=== PATIENT | male | born 1995 | race Hispanic/Latino ===

== ENCOUNTER 2017-11-30 07:46 | Emergency (ER) | payer SELFPAY ==
--- NOTE | 2017-11-30 08:11 | ER ---
Nurse's Notes [facility] Name: Daquan Byrd Age: 22 yrs Sex: Male : 1995 Arrival Date: 11/30/2017 Time: 07:48 Bed 18 Private MD: None, None Diagnosis: Low back pain Presentation: 11/30 08:03 Presenting complaint: Patient states: started having pain to entire back last night, pt iw states he walked 8 miles picking up trash yesterday. Transition of care: patient was not received from another setting of care. Onset of symptoms was November 29, 2017. Risk Assessment: Do you want to hurt yourself or someone else? Patient reports no desire to harm self or others. Initial Sepsis Screen: Does the patient meet any 2 criteria? No. Patient's initial sepsis screen is negative. Does the patient have a suspected source of infection? No. Patient's initial sepsis screen is negative. Care prior to arrival: None. 08:03 Method Of Arrival: Ambulatory iw 08:03 Acuity: BAILEY 4 iw Historical: - Allergies: 08:05 NKA; iw - Home Meds: 08:05 None [Active]; iw - PMHx: 08:05 None; iw - PSHx: 08:05 None; iw - Immunization history:: Adult Immunizations not up to date. - Social history:: Smoking status: . - Ebola Screening: : Patient negative for fever greater than or equal to 101.5 degrees Fahrenheit, and additional compatible Ebola Virus Disease symptoms Patient denies exposure to infectious person Patient denies travel to an Ebola-affected area in the 21 days before illness onset No symptoms or risks identified at this time. Screenin:47 Abuse screen: Denies threats or abuse. Denies injuries from another. Nutritional iw screening: No deficits noted. Tuberculosis screening: No symptoms or risk factors identified. Fall Risk None identified. Assessment: 08:30 General: Appears in no apparent distress. Behavior is calm, cooperative. Pain: iw Complains of pain in back. Neuro: Level of Consciousness is awake, alert, obeys commands, Oriented to person, place, time, situation, Moves all extremities. Full function. Cardiovascular: Patient's skin is warm and dry. Respiratory: Respiratory effort is even, unlabored, Respiratory pattern is regular, symmetrical. GI: No signs and/or symptoms were reported involving the gastrointestinal system. Derm: Skin is pink, warm \T\ dry. normal. Musculoskeletal: Range of motion: intact in all extremities, Reports pain in back. Vital Signs: 08:04 BP 140 / 89; Pulse 83; Resp 16; Temp 97.6; Pulse Ox 98% on R/A; Weight 127.01 kg; iw Height 6 ft. (182.88 cm); Pain 7/10; 08:04 Body Mass Index 37.97 (127.01 kg, 182.88 cm) iw ED Course: 07:48 Patient arrived in ED. mr 07:49 None, None is Private Physician. mr 07:56 Katey Carlin F[facility]-C [facility]. snw 07:56 Pa Vazquez MD is Attending Physician. snw 08:04 Triage completed. iw 08:04 Arm band placed on. iw 08:10 Hemanth Plaza LVN is Primary Nurse. em 08:10 Patient has correct armband on for positive identification. iw 08:46 Primary Nurse role handed off by Hemanth Plaza LVN iw 08:46 Connie Horta RN is Primary Nurse. iw 08:47 No provider procedures requiring assistance completed. Patient did not have IV access iw during this emergency room visit. Administered Medications: 08:27 Drug: TORadol 60 mg Route: IM; Site: right deltoid; iw 08:47 Follow up: Response: No adverse reaction; Pain is decreased iw Outcome: 08:10 Discharge ordered by . snw 08:47 Discharged to home ambulatory. iw 08:47 Condition: good 08:47 Discharge instructions given to patient, Instructed on discharge instructions, follow up and referral plans. medication usage, Demonstrated understanding of instructions, follow-up care, medications, Prescriptions given X 2. 08:47 Patient left the ED. iw Signatures: Katey Carlin FNP-C HAND II THERMAL CUTTER-Maliaw MaderaDelfina mr Hemanth Plaza LVN LVN em Connie Horta, KATE RN iw
--- NOTE | 2017-11-30 08:11 | EDPHYS ---
Physician Documentation [facility] Name: Daquan Byrd Age: 22 yrs Sex: Male : 1995 Arrival Date: 11/30/2017 Time: 07:48 Bed 18 Private MD: None, None ED Physician Pa Vazquez HPI: 11/30 09:23 This 22 yrs old Male presents to ER via Ambulatory with complaints of Back snw Pain. 09:23 The patient presents with pain that is acute. The patient presents with pain that is snw acute, with no known mechanism of injury. The symptoms are located in the thoracic area and lumbar area. Onset: The symptoms/episode began/occurred suddenly, yesterday. The pain does not radiate. Associated signs and symptoms: The patient has no apparent associated signs or symptoms. The problem was sustained from unknown cause. Modifying factors: the patient symptoms are aggravated by obesity. Severity of symptoms: At their worst the symptoms were moderate, severe. It is unknown whether or not the patient has had similar symptoms in the past. It is unknown whether or not the patient has recently seen a physician. Historical: - Allergies: 08:05 NKA; iw - Home Meds: 08:05 None [Active]; iw - PMHx: 08:05 None; iw - PSHx: 08:05 None; iw - Immunization history:: Adult Immunizations not up to date. - Social history:: Smoking status: . - Ebola Screening: : Patient negative for fever greater than or equal to 101.5 degrees Fahrenheit, and additional compatible Ebola Virus Disease symptoms Patient denies exposure to infectious person Patient denies travel to an Ebola-affected area in the 21 days before illness onset No symptoms or risks identified at this time. ROS: 09:23 Constitutional: Negative for fever, chills, and weight loss, Eyes: Negative for injury, snw pain, redness, and discharge, ENT: Negative for injury, pain, and discharge, Neck: Negative for injury, pain, and swelling, Cardiovascular: Negative for chest pain, palpitations, and edema, Respiratory: Negative for shortness of breath, cough, wheezing, and pleuritic chest pain, Abdomen/GI: Negative for abdominal pain, nausea, vomiting, diarrhea, and constipation, : Negative for injury, bleeding, discharge, and swelling, MS/Extremity: Negative for injury and deformity, Skin: Negative for injury, rash, and discoloration, Neuro: Negative for headache, weakness, numbness, tingling, and seizure. 09:23 Back: Positive for decreased range of motion, pain at rest, of the thoracic area and lumbar area. Exam: 09:21 Constitutional: This is a well developed, well nourished patient who is awake, alert, snw and in no acute distress. Head/Face: Normocephalic, atraumatic. Eyes: Pupils equal round and reactive to light, extra-ocular motions intact. Lids and lashes normal. Conjunctiva and sclera are non-icteric and not injected. Cornea within normal limits. Periorbital areas with no swelling, redness, or edema. ENT: Nares patent. No nasal discharge, no septal abnormalities noted. Tympanic membranes are normal and external auditory canals are clear. Oropharynx with no redness, swelling, or masses, exudates, or evidence of obstruction, uvula midline. Mucous membranes moist. Neck: Trachea midline, no thyromegaly or masses palpated, and no cervical lymphadenopathy. Supple, full range of motion without nuchal rigidity, or vertebral point tenderness. No Meningismus. Chest/axilla: Normal chest wall appearance and motion. Nontender with no deformity. No lesions are appreciated. Cardiovascular: Regular rate and rhythm with a normal S1 and S2. No gallops, murmurs, or rubs. Normal PMI, no JVD. No pulse deficits. Respiratory: Lungs have equal breath sounds bilaterally, clear to auscultation and percussion. No rales, rhonchi or wheezes noted. No increased work of breathing, no retractions or nasal flaring. Abdomen/GI: Soft, non-tender, with normal bowel sounds. No distension or tympany. No guarding or rebound. No evidence of tenderness throughout. Skin: Warm, dry with normal turgor. Normal color with no rashes, no lesions, and no evidence of cellulitis. MS/ Extremity: Pulses equal, no cyanosis. Neurovascular intact. Full, normal range of motion. Neuro: Awake and alert, GCS 15, oriented to person, place, time, and situation. Cranial nerves II-XII grossly intact. Motor strength 5/5 in all extremities. Sensory grossly intact. Cerebellar exam normal. Normal gait. 09:21 Constitutional: This is a well developed, obese patient who is awake, alert, and in no acute distress. no hx of trauma, + buffalo hump 09:21 Back: pain, that is moderate, of the thoracic area and lumbar area. 09:24 Neuro: Exam negative for acute changes. snw Vital Signs: 08:04 BP 140 / 89; Pulse 83; Resp 16; Temp 97.6; Pulse Ox 98% on R/A; Weight 127.01 kg; iw Height 6 ft. (182.88 cm); Pain 7/10; 08:04 Body Mass Index 37.97 (127.01 kg, 182.88 cm) iw MDM: 08:00 Patient medically screened. [facility] 09:21 Data reviewed: vital signs, nurses notes. Data interpreted: Pulse oximetry: on room air snw is 98 %. Interpretation: normal. Counseling: I had a detailed discussion with the patient and/or guardian regarding: the historical points, exam findings, and any diagnostic results supporting the discharge/admit diagnosis, the presence of at least one elevated blood pressure reading (>120/80) during this emergency department visit, the need for outpatient follow up, to return to the emergency department if symptoms worsen or persist or if there are any questions or concerns that arise at home. Special discussion: I have referred the patient to see his PCP for further evaluation of high blood pressure. Based on the history and exam findings, there is no indication for further emergent testing or inpatient evaluation. I discussed with the patient/guardian the need to see the primary care provider for further evaluation of the symptoms. Administered Medications: 08:27 Drug: TORadol 60 mg Route: IM; Site: right deltoid; iw 08:47 Follow up: Response: No adverse reaction; Pain is decreased iw Disposition: 11/30/17 08:10 Discharged to Home. Impression: Low back pain. - Condition is Stable. - Discharge Instructions: Back Pain, Adult, Fat and Cholesterol Restricted Diet, Hypertension, Musculoskeletal Pain, Back Exercises, [id number], Heat Therapy. - Prescriptions for Diclofenac Sodium 75 mg Oral Tablet Sustained Release - take 1 tablet by ORAL route 2 times per day; 30 tablet. orphenadrine citrate 100 mg Oral Tablet Sustained Release - take 1 tablet by ORAL route 2 times per day As needed; 20 tablet. - Medication Reconciliation Form, Thank You Letter, Antibiotic Education, Prescription Opioid Use, Work release form form. - Follow up: Private Physician; When: 2 - 3 days; Reason: Recheck today's complaints, Continuance of care, Re-evaluation by your physician. Follow up: Emergency Department; When: As needed; Reason: Worsening of condition. Addendum: 12/01/2017 15:15 Co-signature as Attending Physician, Pa Vazquez MD I agree with the assessment and c sung plan of care. Signatures: Pa Vazquez MD MD cha Therrien, Shelly, KARL-C DIGITAL PRODUCT SPECIALIST-Connie Powell, RN RN iw Corrections: (The following items were deleted from the chart) 11/30 08:47 08:10 11/30/2017 08:10 Discharged to Home. Impression: Low back pain. Condition is iw Stable. Forms are Medication Reconciliation Form, Thank You Letter, Antibiotic Education, Prescription Opioid Use. Follow up: Private Physician; When: 2 - 3 days; Reason: Recheck today's complaints, Continuance of care, Re-evaluation by your physician. Follow up: Emergency Department; When: As needed; Reason: Worsening of condition. snw
[2017-11-30] MEDS ORDERED: KETOROLAC 30 MG/ML INJ ONE (08:20)
[2017-11-30] MEDS ORDERED: ACETAMINOPHEN 325 MG/SUPP PR ONE (08:21)
== END 2017-11-30 08:47 | disposition home or self-care (01) ==
LOC: ER 07:46
DX: M54.5 Low back pain (principal)
CPT/HCPCS: 96372; 99283

== ENCOUNTER 2019-03-16 18:58 | Emergency (ER) | payer SELFPAY ==
--- NOTE | 2019-03-16 19:46 | ER ---
Nurse's Notes [facility] Name: Daquan Byrd Age: 23 yrs Sex: Male : 1995 Arrival Date: 03/16/2019 Time: 19:00 Bed 8 Private MD: Diagnosis: Partial tear of penile frenulum Presentation: 03/16 19:03 Presenting complaint: Patient states: Penile pain with "boil", noticed it about a week lp1 ago, but began to become painful yesterday. Transition of care: patient was not received from another setting of care. Onset of symptoms was March 16, 2019. Risk Assessment: Do you want to hurt yourself or someone else? Patient reports no desire to harm self or others. Initial Sepsis Screen: Does the patient meet any 2 criteria? No. Patient's initial sepsis screen is negative. Does the patient have a suspected source of infection? No. Patient's initial sepsis screen is negative. Care prior to arrival: None. 19:03 Method Of Arrival: Ambulatory lp1 19:03 Acuity: BAILEY 4 lp1 Historical: - Allergies: 19:04 NKA; lp1 - Home Meds: 19:04 None [Active]; lp1 - PMHx: 19:04 None; lp1 - PSHx: 19:04 None; lp1 - Immunization history:: Adult Immunizations up to date. - Social history:: Smoking status: Patient uses tobacco products, denies chronic smoking, but will smoke occasionally. - Ebola Screening: : No symptoms or risks identified at this time. - Family history:: not pertinent. - Hospitalizations: : No recent hospitalization is reported. Screenin:07 Abuse screen: Denies threats or abuse. Denies injuries from another. Nutritional lp1 screening: No deficits noted. Tuberculosis screening: No symptoms or risk factors identified. Fall Risk None identified. Assessment: 19:10 General: Appears in no apparent distress. comfortable, Behavior is calm, cooperative, jb4 appropriate for age. Pain: Complains of pain in penis Pain does not radiate. Pain currently is 0 out of 10 on a pain scale. at worst was 10 out of 10 on a pain scale. Neuro: Level of Consciousness is awake, alert, obeys commands, Oriented to person, place, time, situation. Cardiovascular: Patient's skin is warm and dry. Respiratory: Airway is patent Respiratory effort is even, unlabored, Respiratory pattern is regular, symmetrical. GI: No deficits noted. No signs and/or symptoms were reported involving the gastrointestinal system. : No deficits noted. No signs and/or symptoms were reported regarding the genitourinary system. EENT: No deficits noted. No signs and/or symptoms were reported regarding the EENT system. Derm: Skin is pink, warm \\T\\ dry. Wound noted head of penis. Musculoskeletal: Circulation, motion, and sensation intact. Range of motion: intact in all extremities. 19:54 Reassessment: Patient appears in no apparent distress at this time. Patient and/or jb4 family updated on plan of care and expected duration. Pain level reassessed. Patient is alert, oriented x 3, equal unlabored respirations, skin warm/dry/pink. PT verbalized understanding of d/c and follow up instructions, ambulated out of ED with steady gait. Vital Signs: 19:05 BP 159 / 101; Pulse 111; Resp 18; Temp 97.2; Pulse Ox 97% on R/A; Weight 127.01 kg; lp1 Height 5 ft. 11 in. (180.34 cm); Pain 7/10; 19:05 Body Mass Index 39.05 (127.01 kg, 180.34 cm) lp1 ED Course: 19:00 Patient arrived in ED. mr 19:04 Triage completed. lp1 19:04 Arm band placed on left wrist. lp1 19:06 Isaac Moreno MD is Attending Physician. rn 19:10 Patient has correct armband on for positive identification. Bed in low position. Call jb4 light in reach. Side rails up X 1. 19:23 Javier Cruz, KATE is Primary Nurse. jb4 19:45 Shalini Cavazos MD is Referral Physician. rn 19:54 No provider procedures requiring assistance completed. Patient did not have IV access jb4 during this emergency room visit. Administered Medications: No medications were administered Outcome: 19:45 Discharge ordered by . rn 19:54 Discharged to home ambulatory. jb4 19:54 Condition: stable 19:54 Discharge instructions given to patient, Instructed on discharge instructions, follow up and referral plans. Demonstrated understanding of instructions, follow-up care. 19:55 Patient left the ED. jb4 Signatures: Luma Madera mr Isaac Moreno MD MD rn Priyanka Damian, RN RN lp1 Javier Cruz, KATE RN jb4
--- NOTE | 2019-03-16 19:46 | EDPHYS ---
Physician Documentation [facility] Name: Daquan Byrd Age: 23 yrs Sex: Male : 1995 Arrival Date: 03/16/2019 Time: 19:00 Bed 8 Private MD: ED Physician Isaac Moreno HPI: 03/16 19:42 This 23 yrs old Male presents to ER via Ambulatory with complaints of Penile rn Problem. 19:42 The patient presents with tenderness. Onset: The symptoms/episode began/occurred 1 rn week(s) ago. Modifying factors: The symptoms are alleviated by nothing, the symptoms are aggravated by sexual intercourse. Severity of symptoms: At their worst the symptoms were mild, in the emergency department the symptoms are unchanged. The patient has not experienced similar symptoms in the past. Reports having sex about 1 week ago, heard a pop, noticed tear to penile frenulum, reports small bumps around tear but no bleeding.. Historical: - Allergies: 19:04 NKA; lp1 - Home Meds: 19:04 None [Active]; lp1 - PMHx: 19:04 None; lp1 - PSHx: 19:04 None; lp1 - Immunization history:: Adult Immunizations up to date. - Social history:: Smoking status: Patient uses tobacco products, denies chronic smoking, but will smoke occasionally. - Ebola Screening: : No symptoms or risks identified at this time. - Family history:: not pertinent. - Hospitalizations: : No recent hospitalization is reported. ROS: 19:42 Constitutional: Negative for fever, chills, and weight loss, : + penile frenulum rn injury Exam: 19:42 Constitutional: This is a well developed, well nourished patient who is awake, alert, rn and in no acute distress. Male : uncircumcised, + small superficial mid=proximal frenulum tear, no active bleeding, non-fluctuant, no signs of infection, no purulence. Vital Signs: 19:05 BP 159 / 101; Pulse 111; Resp 18; Temp 97.2; Pulse Ox 97% on R/A; Weight 127.01 kg; lp1 Height 5 ft. 11 in. (180.34 cm); Pain 7/10; 19:05 Body Mass Index 39.05 (127.01 kg, 180.34 cm) lp1 MDM: 19:06 Patient medically screened. rn 19:42 Differential diagnosis: penile/foreskin frenulum tear. Data reviewed: vital signs, rn nurses notes, and as a result, I will discharge patient. Counseling: I had a detailed discussion with the patient and/or guardian regarding: the historical points, exam findings, and any diagnostic results supporting the discharge/admit diagnosis, the need for outpatient follow up, to return to the emergency department if symptoms worsen or persist or if there are any questions or concerns that arise at home. Special discussion: I discussed with the patient/guardian in detail that at this point there is no indication for admission to the hospital. It is understood, however, that if the symptoms persist or worsen the patient needs to return immediately for re-evaluation. Based on the history and exam findings, there is no indication for further emergent testing or inpatient evaluation. I discussed with the patient/guardian the need to see the urologist for further evaluation of the symptoms. Administered Medications: No medications were administered Disposition: 03/16/19 19:45 Discharged to Home. Impression: Partial tear of penile frenulum. - Condition is Stable. - Discharge Instructions: Wound Care. - Medication Reconciliation Form, Thank You Letter, Antibiotic Education, Prescription Opioid Use form. - Follow up: Shalini Cavazos MD; When: As needed; Reason: Recheck today's complaints, Re-evaluation by your physician. - Problem is new. - Symptoms have improved. Signatures: Isaac Moreno MD MD rn Pena, Laura, RN RN lp1 Javier Cruz RN RN jb4 Corrections: (The following items were deleted from the chart) 19:55 19:45 03/16/2019 19:45 Discharged to Home. Impression: Partial tear of penile frenulum. jb4 Condition is Stable. Forms are Medication Reconciliation Form, Thank You Letter, Antibiotic Education, Prescription Opioid Use. Follow up: Shalini Cavazos; When: As needed; Reason: Recheck today's complaints, Re-evaluation by your physician. Problem is new. Symptoms have improved. rn
[2019-03-16 23:08] VITALS: BP 159/101; TEMP 97.2; O2SAT 97
== END 2019-03-16 19:55 | disposition home or self-care (01) ==
LOC: ER 18:58
DX: S31.21XA Laceration without foreign body of penis, initial encounter (principal); X58.XXXA Exposure to other specified factors, initial encounter; Y93.89 Activity, other specified; Y92.9 Unspecified place or not applicable; Z72.0 Tobacco use
CPT/HCPCS: 99281

== ENCOUNTER 2019-11-03 20:51 | Emergency (ER) | payer SELFPAY ==
[2019-11-03] MEDS ORDERED: ACETAMINOPHEN 500 MG TAB ONE (22:16)
--- NOTE | 2019-11-04 00:41 | ER ---
Nurse's Notes [facility] Name: Daquan Byrd Age: 24 yrs Sex: Male : 1995 Arrival Date: 11/03/2019 Time: 20:53 Bed 18 Private MD: Diagnosis: Viral Respiratory Infection Presentation: 11/02 21:02 Chief complaint: Patient states: Fever, cough, SOB, body aches for 3 days. + diarrhea. ll1 Coronavirus screen: Surgical mask placed on patient. Patient moved to private room, placed in contact and droplet isolation with eye protection until further assessment. Patient reports a cough. Patient reports shortness of breath or difficulty breathing. Patient reports a measured and/or subjective temperature greater than 100.4F. Patient denies travel on a cruise ship or to a country the [facility] currently lists as an affected area. Patient denies contact with known and/or suspected case of COVID-19. Ebola Screen: Patient denies travel to an Ebola-affected area in the 21 days before illness onset. Initial Sepsis Screen: Does the patient meet any 2 criteria? Temp <36.0*C (96.8*F)) or > 38.3*C (100.9*F). HR > 90 bpm. Yes Does the patient have a suspected source of infection? Yes: Productive cough/pneumonia. Risk Assessment: Do you want to hurt yourself or someone else? Patient reports no desire to harm self or others. Onset of symptoms was October 31, 2019. 21:02 Method Of Arrival: Ambulatory ll1 21:02 Acuity: BAILEY 3 ll1 Triage Assessment: 11/03 07:48 Respiratory: Onset: The symptoms/episode began/occurred. fu 07:48 Respiratory: fu Historical: - Allergies: 11/02 21:04 NKA; ll1 - PSHx: 21:04 None; ll1 - Immunization history:: Flu vaccine is up to date. - Social history:: Smoking status: Patient reports the use of cigarette tobacco products, smokes one pack cigarettes per day. Patient/guardian denies using alcohol, street drugs. Screenin/25 01:00 Abuse screen: Denies threats or abuse. Nutritional screening: No deficits noted. fu Tuberculosis screening: No symptoms or risk factors identified. Fall Risk None identified. Assessment: 11/02 23:40 General: Appears uncomfortable, Behavior is calm, cooperative, appropriate for age, fu Reports fever for 2-3 days. Pain: Complains of pain in headache. Cardiovascular: Denies chest pain, nausea, Rhythm is regular. Respiratory: Reports shortness of breath cough that is pain with cough Airway is patent Respiratory effort is even, Breath sounds are clear bilaterally. 11/03 01:15 Reassessment: Patient appears in no apparent distress at this time. Patient is alert, fu oriented x 3, equal unlabored respirations, skin warm/dry/pink. discharge instruction given and explained without complaints made. Patient states symptoms have improved. Vital Signs: 11/02 21:02 BP 160 / 88; Pulse 117; Resp 18; Temp 101.8; Pulse Ox 96% ; Pain 9/10; ll1 22:00 BP 155 / 89; Pulse 110; Resp 17; Pulse Ox 99% ; fu 23:00 BP 171 / 95; Pulse 102; Resp 20; Temp 100.5; Pulse Ox 98% ; fu 11/03 00:00 BP 163 / 85; Pulse 99; Resp 16; Pulse Ox 100% ; fu 01:00 BP 153 / 85; Pulse 95; Resp 17; Temp 99.6; Pulse Ox 98% ; fu ED Course: 11/02 20:53 Patient arrived in ED. cl3 21:03 Triage completed. ll1 21:04 Arm band placed on Patient placed in an exam room, on a stretcher. ll1 21:12 Chad Rivera PA is PHCP. jmm 21:12 Pa Vazquez MD is Attending Physician. m 21:16 Gasper Soto, RN is Primary Nurse. fu 21:44 COVID-19 Sent. fu 21:44 Flu Sent. fu 22:10 CXR XRAY In Process Unspecified. EDMS 22:52 CT Chest Wo Con In Process Unspecified. EDMS 11/03 01:00 Patient has correct armband on for positive identification. Bed in low position. Side fu rails up X 1. Pulse ox on. NIBP on. 01:00 No provider procedures requiring assistance completed. Patient did not have IV access fu during this emergency room visit. 11:50 Health Dept notified/ PUI# [id number]/ Kasia in lab notified. eb Administered Medications: 11/02 22:29 Drug: Tylenol 1000 mg Route: PO; fu 23:30 Follow up: Response: No adverse reaction; Temperature is decreased fu Outcome: 11/03 00:40 Discharge ordered by MD. doty 01:20 Discharged to home ambulatory. fu 01:20 Condition: good 01:20 Discharge instructions given to patient, Instructed on discharge instructions, Demonstrated understanding of instructions, Prescriptions given X 1. 01:26 Patient left the ED. fu Addendum: 11/05/2019 17:40 Addendum: Other Dr. Vazquez attempted to call pt, caller was not available. i w 11/06/2019 10:00 Addendum: Other Dr. Moreno attempted to call pt, phone number is disconnected. i w Signatures: Dispatcher [employer] EDMS Chad Rivera PA PA jmm Williams, Irene, RN RN Gasper Olsen RN RN Jackelyn Kraus Charde cl3 Monica Smallwood RN RN ll1
--- NOTE | 2019-11-04 00:41 | EDPHYS ---
Physician Documentation [facility] Name: Daquan Byrd Age: 24 yrs Sex: Male : 1995 Arrival Date: 11/03/2019 Time: 20:53 Bed 18 Private MD: ED Physician Pa Vazquez HPI: 11/02 21:12 This 24 yrs old Male presents to ER via Ambulatory with complaints of Fever, jmm Shortness Of Breath. 21:12 The patient or guardian reports cough, described as moderate. Onset: The jmm symptoms/episode began/occurred gradually, 2 day(s) ago. Modifying factors: The symptoms are alleviated by rest, the symptoms are aggravated by activity. Associated signs and symptoms: Pertinent positives: diarrhea, fever. Historical: - Allergies: 21:04 NKA; ll1 - PSHx: 21:04 None; ll1 - Immunization history:: Flu vaccine is up to date. - Social history:: Smoking status: Patient reports the use of cigarette tobacco products, smokes one pack cigarettes per day. Patient/guardian denies using alcohol, street drugs. ROS: 21:12 Constitutional: Positive for fever. jmm 21:12 Respiratory: Positive for cough. 21:12 Abdomen/GI: Positive for diarrhea. 21:12 All other systems are negative. Exam: 21:12 Constitutional: This is a well developed, well nourished patient who is awake, alert, jmm and in no acute distress. Head/Face: atraumatic. Eyes: EOMI, no conjunctival erythema appreciated ENT: Moist Mucus Membranes Neck: Trachea midline, Supple Chest/axilla: Normal chest wall appearance and motion. Cardiovascular: Regular rate and rhythm. No edema appreciated Respiratory: Normal respirations, no respiratory distress appreciated Abdomen/GI: Non distended, soft Back: Normal ROM Skin: General appearance color normal MS/ Extremity: Moves all extremities, no obvious deformities appreciated, no edema noted to the lower extremities Neuro: Awake and alert, normal gait Psych: Behavior is normal, Mood is normal, Patient is cooperative and pleasant Vital Signs: 21:02 BP 160 / 88; Pulse 117; Resp 18; Temp 101.8; Pulse Ox 96% ; Pain 9/10; ll1 22:00 BP 155 / 89; Pulse 110; Resp 17; Pulse Ox 99% ; fu 23:00 BP 171 / 95; Pulse 102; Resp 20; Temp 100.5; Pulse Ox 98% ; fu 11/03 00:00 BP 163 / 85; Pulse 99; Resp 16; Pulse Ox 100% ; fu 01:00 BP 153 / 85; Pulse 95; Resp 17; Temp 99.6; Pulse Ox 98% ; fu MDM: 11/02 21:14 Patient medically screened. [facility] 11/03 00:39 Data reviewed: vital signs, nurses notes. Counseling: I had a detailed discussion with [facility] the patient and/or guardian regarding: the historical points, exam findings, and any diagnostic results supporting the discharge/admit diagnosis, lab results, radiology results, the need for outpatient follow up, to return to the emergency department if symptoms worsen or persist or if there are any questions or concerns that arise at home. ED course: Patient is alert and non toxic in appearance in the ED. Patient advised to self quarantine due to concern for coronavirus. Patient is otherwise given strict return precautions. Patient understood and agrees with the plan of care. . 11/02 21:12 Order name: COVID-19; Complete Time: 09:00 [facility] 11/02 21:12 Order name: Flu; Complete Time: 23:27 [facility] 11/02 21:12 Order name: CXR XRAY; Complete Time: 09:00 [facility] 11/02 21:12 Order name: Strep; Complete Time: 23:27 [facility] 11/02 22:18 Order name: CT Chest Wo Con [facility] 11/02 23:14 Order name: Throat Culture [facility] 11/02 21:12 Order name: Droplet/Contact Precautions; Complete Time: 07:49 [facility] 11/02 21:12 Order name: Labs collected and sent; Complete Time: 07:49 [facility] 11/02 21:12 Order name: O2 Per Protocol; Complete Time: 07:49 [facility] Administered Medications: 11/02 22:29 Drug: Tylenol 1000 mg Route: PO; fu 23:30 Follow up: Response: No adverse reaction; Temperature is decreased fu Disposition: 11/03 17:50 Co-signature as Attending Physician, Pa Vazquez MD I agree with the assessment and bryce plan of care. Disposition: 11/04/19 00:40 Discharged to Home. Impression: Viral Respiratory Infection. - Condition is Stable. - Discharge Instructions: Viral Respiratory Infection. - Prescriptions for Albuterol Sulfate 90 mcg/actuation - inhale 1-2 puff by INHALATION route every 4-6 hours; 1 Inhaler. - Medication Reconciliation Form, Thank You Letter, Antibiotic Education, Prescription Opioid Use form. - Follow up: Private Physician; When: 2 - 3 days; Reason: Recheck today's complaints, Continuance of care, Re-evaluation by your physician. Signatures: Dispatcher [employer] EDPa Ya MD MD cha Mickail, Joel, PA PA jmm Nieto, Roman, MD MD rn Gasper Soto, RN RN Monica Sifuentes RN RN ll1 Corrections: (The following items were deleted from the chart) 01:26 00:40 11/04/2019 00:40 Discharged to Home. Impression: Viral Respiratory Infection. fu Condition is Stable. Forms are Medication Reconciliation Form, Thank You Letter, Antibiotic Education, Prescription Opioid Use. Follow up: Private Physician; When: 2 - 3 days; Reason: Recheck today's complaints, Continuance of care, Re-evaluation by your physician. lalitha
[2019-11-04 03:17] VITALS: BP 160/88; TEMP 101.8; O2SAT 96
--- NOTE | 2019-11-04 08:46 | RAD REPORT ---
EXAM DESCRIPTION: RAD - Chest Single View - 11/03/2019 10:10 pm CLINICAL HISTORY: cough, sob Chest pain. COMPARISON: Thorax Wo Con dated 11/03/2019 FINDINGS: Portable technique limits examination quality. Mild bilateral interstitial lung opacities are present suggesting interstitial pneumonia. The heart i s normal in size. No displaced fractures. IMPRESSION: Bilateral interstitial pneumonia pattern.
--- NOTE | 2019-11-05 03:01 | RAD REPORT ---
EXAM DESCRIPTION: CT Chest Without Intravenous Contrast CLINICAL HISTORY: The patient is 24 years old and is Male; shortness of breath TECHNIQUE: Axial computed tomography images of the chest without intravenous contrast. Sagittal and coronal reformatted images were created and reviewed. This CT exam was performed using one or more of the following dose reduction techniques: automated exposure control, adjustment of the mA and/o r kV according to patient size, and/or use of iterative reconstruction technique. DLP: 1242 mGy*cm COMPARISON: None. FINDINGS: LUNGS: Innumerable centrilobular subcentimeter groundglass nodularities bilaterally. Lar gest nodule noted in the left lower lobe measuring approximately 9 mm (series 201, image 42). PLEURAL SPACE: Unremarkable. No pneumothorax. No significant effusion. HEART: Unremarkable. No cardiomegaly. No significant pericardial effusion. THYROID: No thyroid tissue identified in the expected thyroid bed. BONES/JOINTS: Unremarkable. No acute fracture. No dislocation. SOFT TISSUES: Unremarkable. VASCULATURE: Unremarkable. No thoracic aortic aneurysm. LYMPH NODES: Unremarkable. No enlarged lymph nodes. LIVER: Diffuse hepatic steatosis. GALLBLADDER AND BILE DUCTS: Contracted gallbladder. IMPRESSION: 1. Imaging features can be seen with COVID-19 pneumonia, though are nonspecific and can occur with a variety of infectious and noninfectious processes. 2. Diffuse hepatic steatosis. Electronically signed by: Steven Balderrama DO 11/03/2019 11:03 PM CDT Due to temporary technical issues with the PACS/Fluency reporting system, reports are being signed by the in house radiologist without review as a courtesy to ensure prompt reporting. The interpreting r adiologist is fully responsible for the content of the report.
== END 2019-11-04 01:26 | disposition home or self-care (01) ==
LOC: ER 20:51
DX: J98.8 Other specified respiratory disorders (principal); F17.210 Nicotine dependence, cigarettes, uncomplicated
CPT/HCPCS: 71045; 71250; 87070; 87081; 87804; 99284; U0001; U0002

== ENCOUNTER 2020-03-31 20:45 | Emergency (ER) | payer SELFPAY ==
[2020-03-31 22:23] LABS: Urine Blood NEGATIVE (NEG); Urine Glucose NEGATIVE (NEG); Urine Protein NEGATIVE (NEG); Urine Specific Gravity 1.025 (1.005-1.030); Urine pH 6.5 (5.0-7.0)
[2020-03-31 22:46] LABS: Absolute Lymphocytes (CBC) 2.2 K/uL (0.7-4.9); Basophils % 0.8 % (0-1.3); Hematocrit 42.9 % (39.6-49.0); Lymphocytes % 19.6 % (15.3-44.8); MPV 8.3 fL (7.6-11.3); RBC Red Blood Cell Count 5.07 M/uL (4.33-5.43)
[2020-03-31 23:04] LABS: ALT/SGPT 179 U/L (12-78); AST/SGOT 87 U/L (15-37); Albumin 3.7 g/dL (3.4-5.0); Alkaline Phosphatase 96 U/L (45-117); BUN Blood Urea Nitrogen 11 mg/dL (7-18); Bicarbonate 30 mmol/L (21-32); Bilirubin Direct 0.1 mg/dL (0-0.2); Bilirubin Total 0.3 mg/dL (0.2-1.0); Glucose Level 117 mg/dL (74-106); Lipase 407 U/L (73-393); Potassium 4.3 mmol/L (3.5-5.1); Protein, Total 8.6 g/dL (6.4-8.2); Sodium Level 139 mmol/L (136-145)
--- NOTE | 2020-04-01 00:01 | ER ---
Nurse's Notes [facility] Name: Daquan Byrd Age: 25 yrs Sex: Male : 1995 Arrival Date: 03/31/2020 Time: 21:01 Bed 13 Private MD: Diagnosis: Acute pancreatitis Presentation: 03/31 21:02 Chief complaint: Patient states: LUQ abdominal pain for a few weeks. States he lifted ll1 weights, then the pain got more severe for the past three days. No N/V/D. No fever. Coronavirus screen: Client denies travel out of the [place] in the last 14 days. At this time, the client does not indicate any symptoms associated with coronavirus-19. Ebola Screen: Patient denies travel to an Ebola-affected area in the 21 days before illness onset. Initial Sepsis Screen: Does the patient meet any 2 criteria? HR > 90 bpm. No. Patient's initial sepsis screen is negative. Does the patient have a suspected source of infection? Yes: Acute abdominal pain. Risk Assessment: Do you want to hurt yourself or someone else? Patient reports no desire to harm self or others. Onset of symptoms was March 12, 2020. 21:02 Method Of Arrival: Ambulatory ll1 21:02 Acuity: BAILEY 3 ll1 Historical: - Allergies: 21:04 NKA; ll1 - PMHx: 21:04 None; ll1 - PSHx: 21:04 None; ll1 - Immunization history:: Flu vaccine is up to date. - Social history:: Smoking status: Patient/guardian denies using tobacco, Stopped _ months ago 3. Screenin:40 Abuse screen: Denies threats or abuse. Nutritional screening: No deficits noted. cr4 Tuberculosis screening: No symptoms or risk factors identified. Fall Risk None identified. Assessment: 21:54 General: Appears uncomfortable, obese, well groomed, Behavior is calm, cooperative, cr4 appropriate for age. Pain: Complains of pain in MENDEL abdomen. 21:54 Neuro: Level of Consciousness is awake, alert, obeys commands, Denies weakness cr4 difficulty swallowing, numbness. Cardiovascular: No deficits noted. Heart tones S1 S2. Respiratory: No deficits noted. Airway is patent Trachea midline Respiratory effort is even, unlabored, Respiratory pattern is regular, Breath sounds are clear bilaterally. GI: Abdomen is round Bowel sounds present X 4 quads. Abd is soft and non tender X 4 quads. Reports upper abdominal pain, Patient currently denies diarrhea, vomiting. : No deficits noted. Denies burning with urination, incontinence, urinary frequency, urgency. EENT: No deficits noted. Derm: No deficits noted. Musculoskeletal: No deficits noted. 22:40 Reassessment: No changes from previously documented assessment. Patient and/or family cr4 updated on plan of care and expected duration. Pain level reassessed. Patient is alert, oriented x 3, equal unlabored respirations, skin warm/dry/pink. 23:40 Reassessment: No changes from previously documented assessment. Patient and/or family cr4 updated on plan of care and expected duration. Pain level reassessed. Patient is alert, oriented x 3, equal unlabored respirations, skin warm/dry/pink. 04/01 00:40 Reassessment: Patient is alert, oriented x 3, equal unlabored respirations, skin cr4 warm/dry/pink. Patient states symptoms have improved. 04:01 Reassessment: Chad YAN in to see the patient.. cr4 Vital Signs: 03/31 21:02 BP 141 / 81; Pulse 97; Resp 18; Temp 97.9; Pulse Ox 99% ; Weight 136.08 kg; Height 5 ll1 ft. 11 in. (180.34 cm); Pain 8/10; 21:50 BP 119 / 83; Pulse 85; Resp 18; Pulse Ox 96% ; Pain 2/10; cr4 23:00 BP 112 / 76; Pulse 82; Resp 18; Temp 98.6; Pulse Ox 97% ; Pain 2/10; cr4 04/01 00:20 BP 125 / 83; Pulse 86; Resp 19; Pulse Ox 99% ; Pain 2/10; cr4 01:00 BP 122 / 73; Pulse 86; Resp 17; Temp 98.6; Pulse Ox 99% ; Pain 2/10; cr4 03/31 21:02 Body Mass Index 41.84 (136.08 kg, 180.34 cm) ll1 ED Course: 03/31 21:01 Patient arrived in ED. ll1 21:04 Triage completed. ll1 21:04 Arm band placed on. ll1 21:45 Chad Rivera PA is PHCP. [facility] 21:45 Adalberto Trejo MD is Attending Physician. [facility] 22:00 Missed attempt(s): 20 gauge in right antecubital area. cr4 22:33 Radiology exam delayed due to IV insertion attempt and/or patient not having nj appropriate IV at this time. 22:37 Inserted saline lock: 22 gauge in right antecubital area, using aseptic technique. dm5 Blood collected. 22:40 Patient has correct armband on for positive identification. Bed in low position. Side cr4 rails up X2. offered a blanket.. Diet: Patient is NPO. 23:59 Agustín Vincent is Hospitalizing Provider. [facility] 04/01 00:12 CT Chest For PE Angio In Process Unspecified. EDWI 00:12 CT Abd/Pelvis - IV Contrast Only In Process Unspecified. EDMS 00:49 Jose Miguel Perez MD is Referral Physician. [facility] 00:55 Preeti Edwards, KATE is Primary Nurse. cr4 01:00 IV discontinued, intact, bleeding controlled. cr4 01:09 No provider procedures requiring assistance completed. cr4 Administered Medications: 00:10 Drug: NS 0.9% 1000 ml Route: IV; Rate: 1 bolus; Site: left antecubital; cr4 03:50 Follow up: Response: No adverse reaction; IV Intake: 700ml cr4 Intake: 03:50 IV: 700ml; Total: 700ml. cr4 Outcome: 03/31 23:59 Decision to Hospitalize by Provider. [facility] 04/01 00:49 Discharge ordered by MD. [facility] 01:00 Discharged to home ambulatory, with friend. cr4 01:00 Condition: good 01:00 Discharge instructions given to patient, Instructed on discharge instructions, follow up and referral plans. medication usage, Clear liquid diet. Demonstrated understanding of instructions, follow-up care, medications. 01:00 Prescriptions given X 2. 01:09 Patient left the ED. cr4 Signatures: Dispatcher [employer] [facility] Trinidad Isidro, RN RN dm5 Chad Rivera PA PA [facility] Preeti Edwards, RN RN cr4 Jn Alva MyKena mw2 Monica Samllwood RN RN ll1 Corrections: (The following items were deleted from the chart) 03/31 22:37 22:36 Inserted saline lock: mw2 mw2
[2020-04-01] MEDS ORDERED: NA CHLORIDE 0.9% 1,000 ML ONE (00:16)
--- NOTE | 2020-04-01 00:50 | EDPHYS ---
Physician Documentation [facility] Name: Daquan Byrd Age: 25 yrs Sex: Male : 1995 Arrival Date: 03/31/2020 Time: 21:01 Bed 13 Private MD: ED Physician Adalberto Trejo HPI: 03/31 22:05 This 25 yrs old Male presents to ER via Ambulatory with complaints of jmm Abdominal Pain. 22:05 The patient presents with abdominal pain in the epigastric area. Onset: The jmm symptoms/episode began/occurred gradually, 1 month(s) ago. The symptoms do not radiate. Associated signs and symptoms: Pertinent positives: shortness of breath. The symptoms are described as achy. Modifying factors: The symptoms are alleviated by nothing, the symptoms are aggravated by nothing. This is a 25 year old male with no chronic medical conditions that presents to the ED with complaints of left flank pain, left sided abdominal pain, shortness of breath. Worsening after eating. . Historical: - Allergies: 21:04 NKA; ll1 - PMHx: 21:04 None; ll1 - PSHx: 21:04 None; ll1 - Immunization history:: Flu vaccine is up to date. - Social history:: Smoking status: Patient/guardian denies using tobacco, Stopped _ months ago 3. ROS: 22:05 Constitutional: Negative for fever, chills, and weight loss, Cardiovascular: Negative jmm for chest pain, palpitations, and edema. 22:05 Respiratory: Positive for shortness of breath. 22:05 Abdomen/GI: Positive for abdominal pain. 22:05 All other systems are negative. Exam: 22:05 Constitutional: This is a well developed, well nourished patient who is awake, alert, jmm and in no acute distress. Head/Face: atraumatic. Eyes: EOMI, no conjunctival erythema appreciated ENT: Moist Mucus Membranes Neck: Trachea midline, Supple Chest/axilla: Normal chest wall appearance and motion. Cardiovascular: Regular rate and rhythm. No edema appreciated Respiratory: Normal respirations, no respiratory distress appreciated Abdomen/GI: Non distended, soft Back: Normal ROM Skin: General appearance color normal MS/ Extremity: Moves all extremities, no obvious deformities appreciated, no edema noted to the lower extremities Neuro: Awake and alert, normal gait Psych: Behavior is normal, Mood is normal, Patient is cooperative and pleasant Vital Signs: 21:02 BP 141 / 81; Pulse 97; Resp 18; Temp 97.9; Pulse Ox 99% ; Weight 136.08 kg; Height 5 ll1 ft. 11 in. (180.34 cm); Pain 8/10; 21:50 BP 119 / 83; Pulse 85; Resp 18; Pulse Ox 96% ; Pain 2/10; cr4 23:00 BP 112 / 76; Pulse 82; Resp 18; Temp 98.6; Pulse Ox 97% ; Pain 2/10; cr4 04/01 00:20 BP 125 / 83; Pulse 86; Resp 19; Pulse Ox 99% ; Pain 2/10; cr4 01:00 BP 122 / 73; Pulse 86; Resp 17; Temp 98.6; Pulse Ox 99% ; Pain 2/10; cr4 03/31 21:02 Body Mass Index 41.84 (136.08 kg, 180.34 cm) ll1 MDM: 03/31 22:03 Patient medically screened. [facility] 23:58 Data reviewed: vital signs, nurses notes. Counseling: I had a detailed discussion with [facility] the patient and/or guardian regarding: the historical points, exam findings, and any diagnostic results supporting the discharge/admit diagnosis, lab results, the need for further work-up and treatment in the hospital. ED course: . 04/01 00:48 Counseling: I had a detailed discussion with the patient and/or guardian regarding: [facility] radiology results, the need for outpatient follow up. ED course: Patient is alert and non toxic in appearance in the ED. Patient is advised to follow up with gi and otherwise given strict return precautions. Patient understood and agrees with the plan of care. . 03/31 21:59 Order name: Basic Metabolic Panel; Complete Time: 23:19 [facility] 03/31 21:59 Order name: CBC with Diff; Complete Time: 23:00 [facility] 03/31 21:59 Order name: Hepatic Function; Complete Time: 23:19 [facility] 03/31 21:59 Order name: Lipase; Complete Time: 23:19 [facility] 03/31 22:04 Order name: CT Chest For PE Angio [facility] 03/31 22:20 Order name: Urine Dipstick--Ancillary (enter results); Complete Time: 22:34 [facility] 11/20 21:59 Order name: IV Saline Lock; Complete Time: 22:37 [facility] 03/31 21:59 Order name: Labs collected and sent; Complete Time: 22:37 [facility] 03/31 21:59 Order name: Urine Dipstick-Ancillary (obtain specimen); Complete Time: 23:00 [facility] 03/31 22:04 Order name: CT Abd/Pelvis - IV Contrast Only [facility] Administered Medications: 00:10 Drug: NS 0.9% 1000 ml Route: IV; Rate: 1 bolus; Site: left antecubital; cr4 03:50 Follow up: Response: No adverse reaction; IV Intake: 700ml cr4 Disposition: 06:32 Co-signature as Attending Physician, Adalberto Trejo MD. [email or web address] Disposition: 04/01/20 00:49 Discharged to Home. Impression: Acute pancreatitis. - Condition is Stable. - Discharge Instructions: Clear Liquid Diet, Adult, Acute Pancreatitis. - Prescriptions for Zofran ODT 4 mg Oral tablet,disintegrating - place 1 tablet by TRANSLINGUAL route every 4-6 hours; 20 tablet. Tylenol- Codeine #3 300-30 mg Oral Tablet - take 1 tablet by ORAL route every 6 hours As needed; 30 tablet. - Medication Reconciliation Form, Thank You Letter, Antibiotic Education, Prescription Opioid Use form. - Follow up: Jose Miguel Perez MD; When: 2 - 3 days; Reason: Recheck today's complaints, Continuance of care, Re-evaluation by your physician. Signatures: Dispatcher [employer] EDMS Chad Rivera PA PA [facility] Preeti Edwards RN RN cr4 Monica Smallwood RN RN ll1 Adalberto Trejo MD MD 7 Corrections: (The following items were deleted from the chart) 00:00 03/31 23:58 ED course: I discussed the patient with Gama Ding whom accepted the [facility] patient to Dr. Vincent's service. . [facility] 04/01 00:00 11 23:59 Hospitalization Ordered by Agustín Vincent for Inpatient Admission. [facility] Preliminary diagnosis is Chest pain, unspecified. Bed requested for Telemetry/MedSurg (Inpatient). Status is Inpatient Admission. Condition is Stable. Problem is new. Symptoms are unchanged. [facility] 04/01 01:09 00:49 04/01/2020 00:49 Discharged to Home. Impression: Acute pancreatitis. Condition is cr4 Stable. Forms are Medication Reconciliation Form, Thank You Letter, Antibiotic Education, Prescription Opioid Use. Follow up: Jose Miguel Perez; When: 2 - 3 days; Reason: Recheck today's complaints, Continuance of care, Re-evaluation by your physician. [email or web address]
[2020-04-01 11:15] VITALS: BP 141/81; TEMP 97.9; O2SAT 99
--- NOTE | 2020-04-03 10:51 | RAD REPORT ---
EXAM DESCRIPTION: CT - Abdomen Pelvis W Contrast - 04/01/2020 7:11 am CLINICAL HISTORY: The patient is 25 years old and is Male; left flank pain TECHNIQUE: Axial computed tomography images of the abdomen and pelvis with intravenous contrast. S agittal and coronal reformatted images were created and reviewed. This CT exam was performed using one or more of the following dose reduction techniques: automated exposure control, adjustment of t he mA and/or kV according to patient size, and/or use of iterative reconstruction technique. COMPARISON: No relevant prior studies available. FINDINGS: LUNG BASES: Unremarkable. No mass. No consolidation. ABDOMEN: LIVER: The liver is enlarged and diffusely fatty. GALLBLADDER AND BILE DUCTS: The gallbladder is contracted. PANCREAS: Suggestion of mild inflammatory stranding involving the tail the pancreas is present. The pancreas enhances uniformly. SPLEEN: Unremarkable. ADRENALS: Unremarkable. No mass. KIDNEYS AND URETERS: Unremarkable. The kidneys enhance symmetrically. No obstructing renal or ur eteral calculus is seen. No hydronephrosis or hydroureter. No perinephric fluid or stranding. STOMACH AND BOWEL: Stomach is distended with food contents. The small bowel is normal in caliber . Stool is present throughout colon. There is no mucosal thickening or evidence of bowel obstruction. PELVIS: APPENDIX: The appendix is normal in caliber without surrounding inflammation. BLADDER: Unremarkable. No mass. REPRODUCTIVE: Unremarkable as visualized. ABDOMEN and PELVIS: INTRAPERITONEAL SPACE: Unremarkable. No free air. No significant fluid collection. BONES/JOINTS: No acute fracture. SOFT TISSUES: The soft tissues are normal. VASCULATURE: Unremarkable. No abdominal aortic aneurysm. LYMPH NODES: Unremarkable. No enlarged lymph nodes. IMPRESSION: Findings suggest mild acute pancreatitis involving the tail the pancreas. Correlation wi laboratory values is recommended. Electronically signed by: Maryam Sanchez MD 04/01/2020 12:14 AM TRAILER PARK MANAGER Due to temporary technical issues with the PACS/Fluency reporting system, reports are being signed by the in house radiologist without review as a courtesy to ensure prompt reporting. The interpreting r adiologist is fully responsible for the content of the report.
--- NOTE | 2020-04-03 10:52 | RAD REPORT ---
EXAM DESCRIPTION: CT - Chest For Pe Angio - 04/01/2020 7:13 am CLINICAL HISTORY: 25 years Male left flank pain, shortness of breath COMPARISON: Prior CT scan of the chest dated November 03, 2019. TECHNIQUE: Images were obtained in axial, sagittal, and coronal planes. Intravenous contrast was adm inistered. Image degradation related to patient body size. 3-D MIP imaging performed. This exam was performed according to our departmental dose-optimization program which includes use of Automated Exposure Control, adjustment of the mA and/or kV according to patient size and/or use o f iterative reconstruction technique. FINDINGS: No filling defects pulmonary arteries bilaterally. No aortic dissection or dilatation. No pericardial or pleural effusions bilaterally. No adenopathy. Previously noted ill-defined lung parenchymal nodules have resolved. No new lung parenchymal infiltra jerica seen. No pneumothorax. No acute osseous abnormality. Decreased attenuation involving the liver consistent with fatty change. IMPRESSION: No evidence for pulmonary embolus. No aortic dissection or dilatation. Previously noted ill-defined nodular infiltrates have resolved. No new infiltrates seen. Fatty change involving the liver. Electronically signed by: Kristine Murillo MD 04/01/2020 12:17 AM TRIM INSTALLER Due to temporary technical issues with the PACS/Fluency reporting system, reports are being signed by the in house radiologist without review as a courtesy to ensure prompt reporting. The interpreting r adiologist is fully responsible for the content of the report.
== END 2020-04-01 01:09 | disposition home or self-care (01) ==
LOC: ER 20:45
DX: K85.90 Acute pancreatitis without necrosis or infection, unspecified (principal)
CPT/HCPCS: 36415; 71275; 74177; 80048; 80076; 81003; 83690; 85025; 99284; J7030; Q9967

== ENCOUNTER 2021-07-21 17:49 | Emergency (ER) | payer SELFPAY ==
[2021-07-21] MEDS ORDERED: dexAMETHasone 10 MG/ML VIAL ONE (18:56)
[2021-07-21] MEDS ORDERED: CLINDAMYCIN 900MG/D5W 900 MG/50 ML IVPB IV ONE (18:56)
[2021-07-21] MEDS ORDERED: KETOROLAC 30 MG/ML INJ ONE (18:56)
--- NOTE | 2021-07-21 19:17 | RAD REPORT ---
EXAM DESCRIPTION: CT - Soft Tissue Neck W/Contr CLINICAL HISTORY: pharynbgeal swelling Neck pain and swelling COMPARISON: No comparisons TECHNIQUE All CT scans are performed using dose optimization technique as appropriate and may includ e automated exposure control or mA/KV adjustment according to patient size. FINDINGS: Nasopharyngeal tissues are normal in appearance. Fossa Rosenmller are normal. [place] tonsils appear prominent in size without abscess. Parapharyngeal fat triangles are symmetric. Tongue base structures are normal. No prevertebral fluid collections. Epiglottis and aryepiglottic folds are normal. Piriform sinuses are well aerated. The vocal cords are normal in appearance. Salivary glands are normal in appearance. Enlarged lymph nodes are seen in bilaterally in the neck, largest on the right measuring 19 mm along the jugulodigastric chain and on the left measuring 23 mm. Upper lung lou are clear. Included intracranial contents are unremarkable. IMPRESSION: Enlarged lymph nodes neck bilaterally could indicate cervical adenitis. Followup imaging would be recommended to document resolution. Bilateral palatine tonsillar hypertrophy is present without abscess.
--- NOTE | 2021-07-21 19:26 | ER ---
Nurse's Notes [facility] Name: Daquan Byrd Age: 26 yrs Sex: Male : 1995 Arrival Date: 07/21/2021 Time: 17:53 Bed 6 Private MD: Diagnosis: Streptococcal pharyngitis Presentation: 07/21 17:59 Chief complaint: Patient states: Sore throat with swelling in tonsils for 4 days with ww left ear pain and a headache. Coronavirus screen: Vaccine status: Patient reports being unvaccinated. Client denies travel out of the [place] in the last 14 days. Ebola Screen: Patient denies travel to an Ebola-affected area in the 21 days before illness onset. Initial Sepsis Screen: Does the patient meet any 2 criteria? HR > 90 bpm. Does the patient have a suspected source of infection? Yes: No. Patient's initial sepsis screen is negative. Risk Assessment: Do you want to hurt yourself or someone else? Patient reports no desire to harm self or others. Onset of symptoms is unknown. 17:59 Method Of Arrival: Ambulatory ww 17:59 Acuity: BAILEY 4 ww Triage Assessment: 18:03 General: Appears uncomfortable, Behavior is calm, cooperative. Pain: Complains of pain ww in uvula, left aspect of posterior pharynx and right aspect of posterior pharynx. EENT: Throat has enlarged tonsils. Neuro: Level of Consciousness is awake, alert, obeys commands, Oriented to person, place, time, situation, Gait is steady, Speech is slurred. Cardiovascular: Capillary refill < 3 seconds Patient's skin is warm and dry. Respiratory: Airway is patent Respiratory effort is even, unlabored, Respiratory pattern is regular, symmetrical. GI: No signs and/or symptoms were reported involving the gastrointestinal system. : No signs and/or symptoms were reported regarding the genitourinary system. Derm: No signs and/or symptoms reported regarding the dermatologic system. Historical: - Allergies: 18:03 NKA; ww - PMHx: 18:03 None; ww - PSHx: 18:03 None; ww - Immunization history:: Adult Immunizations not immunized. - Social history:: Smoking status: Patient reports the use of cigarette tobacco products, smokes one-half pack cigarettes per day. Screenin:07 Abuse screen: Denies threats or abuse. Denies injuries from another. Nutritional ww screening: No deficits noted. Tuberculosis screening: No symptoms or risk factors identified. Fall Risk None identified. Assessment: 19:05 Reassessment: No changes from previously documented assessment. j9 19:05 Respiratory: Airway is patent Breath sounds are clear bilaterally. jg9 Vital Signs: 17:59 BP 135 / 79; Pulse 110; Resp 18; Temp 97.7; Pulse Ox 97% on R/A; Weight 145.15 kg; ww Height 5 ft. 11 in. (180.34 cm); Pain 8/10; 17:59 Body Mass Index 44.63 (145.15 kg, 180.34 cm) ww ED Course: 17:53 Patient arrived in ED. ds1 17:57 Chad Rivera PA is PHCP. m 17:57 Pa Vazquez MD is Attending Physician. [facility] 18:03 Triage completed. ww 18:03 Arm band placed on right wrist. ww 18:13 Flu and/or RSV swab sent to lab. Strep swab sent to lab. ph 18:49 Nani Chery, RN is Primary Nurse. j9 18:52 COVID-19/FLU A+B (Document "Date of Onset" if Symptomatic) Sent. 3 18:52 Strep Sent. 3 18:55 Inserted saline lock: 20 gauge in left forearm, using aseptic technique. jg9 19:05 Patient has correct armband on for positive identification. Bed in low position. Call j9 light in reach. 19:10 CT Soft Tissue Neck W/contr In Process Unspecified. EDMS 19:26 Radha Samuel MD is Referral Physician. [facility] 19:51 No provider procedures requiring assistance completed. IV discontinued, intact, kd3 bleeding controlled, No redness/swelling at site. Pressure dressing applied. Administered Medications: 18:58 Drug: Decadron - Dexamethasone 10 mg Route: IVP; Site: left forearm; j9 19:17 Follow up: Response: No adverse reaction jg9 19:52 Follow up: Response: No adverse reaction kd3 19:01 Drug: Ketorolac 30 mg Route: IVP; Site: left forearm; jg9 19:17 Follow up: Response: No adverse reaction; Pain is decreased j9 19:52 Follow up: Response: No adverse reaction kd3 19:16 Drug: Clindamycin 900 mg Route: IVPB; Infused Over: 30 mins; Site: left forearm; j9 19:52 Follow up: Response: No adverse reaction; IV Status: Completed infusion kd3 Outcome: 19:26 Discharge ordered by MD. doty 19:51 Discharged to home ambulatory. kd3 19:51 Condition: stable 19:51 Instructed on discharge instructions, follow up and referral plans. medication usage, Demonstrated understanding of instructions, follow-up care, medications, Prescriptions given X 1. 19:53 Patient left the ED. kd3 Signatures: Dispatcher [employer] EDMS Chad Rivera PA PA jmm Sanford, Demi ds1 Miya Yanez RN RN Claudia Peñaloza 3 Cici Iraheta RN RN kd3 aNni Chery RN RN jg9 Gwendolyn Vasquez RN RN ww
--- NOTE | 2021-07-21 19:26 | EDPHYS ---
Physician Documentation [facility] Name: Daquan Byrd Age: 26 yrs Sex: Male : 1995 Arrival Date: 07/21/2021 Time: 17:53 Bed 6 Private MD: ED Physician Pa Vazquez HPI: 07/21 19:24 This 26 yrs old Male presents to ER via Ambulatory with complaints of Sore jmm Throat. 19:24 The patient presents with sore throat. Onset: The symptoms/episode began/occurred jmm gradually, 4 day(s) ago. Modifying factors: The symptoms are alleviated by nothing, the symptoms are aggravated by nothing. Associated signs and symptoms: Pertinent negatives fever. Historical: - Allergies: 18:03 NKA; ww - PMHx: 18:03 None; ww - PSHx: 18:03 None; ww - Immunization history:: Adult Immunizations not immunized. - Social history:: Smoking status: Patient reports the use of cigarette tobacco products, smokes one-half pack cigarettes per day. ROS: 19:24 Constitutional: Negative for fever, chills, and weight loss. jmm 19:24 Cardiovascular: Negative for chest pain, palpitations, and edema, Respiratory: Negative for shortness of breath, cough, wheezing, and pleuritic chest pain, Abdomen/GI: Negative for abdominal pain, nausea, vomiting, diarrhea, and constipation, Back: Negative for injury and pain. 19:24 ENT: Positive for sore throat. 19:24 All other systems are negative. Exam: 19:24 Constitutional: This is a well developed, well nourished patient who is awake, alert, jmm and in no acute distress. Head/Face: atraumatic. Eyes: EOMI, no conjunctival erythema appreciated 19:24 Neck: Trachea midline, Supple Chest/axilla: Normal chest wall appearance and motion. Cardiovascular: Regular rate and rhythm. No edema appreciated Respiratory: Normal respirations, no respiratory distress appreciated Abdomen/GI: Non distended, soft Back: Normal ROM Skin: General appearance color normal MS/ Extremity: Moves all extremities, no obvious deformities appreciated, no edema noted to the lower extremities Neuro: Awake and alert Psych: Behavior is normal, Mood is normal, Patient is cooperative and pleasant 19:24 ENT: Posterior pharynx: Tonsils: bilaterally enlarged, erythema, that is moderate, peritonsillar mass, is noted on left. Vital Signs: 17:59 BP 135 / 79; Pulse 110; Resp 18; Temp 97.7; Pulse Ox 97% on R/A; Weight 145.15 kg; ww Height 5 ft. 11 in. (180.34 cm); Pain 8/10; 17:59 Body Mass Index 44.63 (145.15 kg, 180.34 cm) ww MDM: 18:08 Patient medically screened. [facility] 19:25 Data reviewed: vital signs, nurses notes. Counseling: I had a detailed discussion with [facility] the patient and/or guardian regarding: the historical points, exam findings, and any diagnostic results supporting the discharge/admit diagnosis, radiology results, the need for outpatient follow up, to return to the emergency department if symptoms worsen or persist or if there are any questions or concerns that arise at home. ED course: CT was negative for NURSING FACULTY. Patient advised follow-up with ENT for further evaluation otherwise given strict return precautions. Patient understood agrees plan of care per. 07/21 18:04 Order name: COVID-19/FLU A+B (Document "Date of Onset" if Symptomatic); Complete Time: [facility] 19:38 07/21 18:04 Order name: Strep; Complete Time: 19:07 [facility] 07/21 18:07 Order name: CT Soft Tissue Neck W/contr; Complete Time: 19:19 [facility] 07/21 18:07 Order name: Saline Lock; Complete Time: 19:04 [facility] Administered Medications: 18:58 Drug: Decadron - Dexamethasone 10 mg Route: IVP; Site: left forearm; jg9 19:17 Follow up: Response: No adverse reaction j9 19:52 Follow up: Response: No adverse reaction kd3 19:01 Drug: Ketorolac 30 mg Route: IVP; Site: left forearm; jg9 19:17 Follow up: Response: No adverse reaction; Pain is decreased j9 19:52 Follow up: Response: No adverse reaction kd3 19:16 Drug: Clindamycin 900 mg Route: IVPB; Infused Over: 30 mins; Site: left forearm; jg9 19:52 Follow up: Response: No adverse reaction; IV Status: Completed infusion kd3 Disposition: 07/22 18:28 Co-signature as Attending Physician, Pa Vazquez MD I agree with the assessment and bryce plan of care. Disposition Summary: 07/21/21 19:26 Discharge Ordered Location: Home [facility] Condition: Stable [facility] Diagnosis - Streptococcal pharyngitis [facility] Followup: [facility] - With: Radha Samuel MD - When: 2 - 3 days - Reason: Recheck today's complaints, Continuance of care, Re-evaluation by your physician Discharge Instructions: - Discharge Summary Sheet [facility] - Strep Throat, Adult [facility] Forms: - Medication Reconciliation Form [facility] - Thank You Letter [facility] - Antibiotic Education [facility] - Prescription Opioid Use [facility] Prescriptions: - Clindamycin HCl 300 mg Oral Capsule - take 1 capsule by ORAL route every 6 hours for 10 days; 40 capsule; Refills: 0, [facility] Product Selection Permitted Signatures: Dispatcher [employer] Pa Ayon MD MD cha Mickail, Joel, PA PA jmm Gilmore, Jennifer, RN RN jg9 Gwendolyn Vasquez RN RN ww Cici Iraheta RN kd3
[2021-07-21 19:28] LABS: SARS-COV-2 RT PCR NEGATIVE (NEGATIVE)
[2021-07-21 20:11] VITALS: BP 135/79; TEMP 97.7; O2SAT 97
== END 2021-07-21 19:53 | disposition home or self-care (01) ==
LOC: ER 17:49
DX: J02.0 Streptococcal pharyngitis (principal); F17.210 Nicotine dependence, cigarettes, uncomplicated; Z20.822 Contact with and (suspected) exposure to COVID-19
CPT/HCPCS: 0240U; 70491; 87081; 96365; 96375; 99284; J1100; Q9967

== ENCOUNTER → 2023-06-28 | Emergency (ER) | payer SELFPAY ==
[~2023-06-28] MED LIST: LIDOCAINE VISCOUS 2% 10ML ORAL SOLN ONE; dexAMETHasone 10 MG/ML VIAL ONE
--- OUTSIDE RECORDS SUMMARY | 2023-06-28 04:47 | XMS REPORT | Continuity of Care Document ---
Author Name Unknown Address [address] [facility] [address] [place] [address] [facility] Address [address] [facility] [address] [place] [address] Care Team Providers Care Ship Joiner Name Role Phone Pcp, Patient Does Not Have A Primary Care Physic otto TIEN MACDONALD Attending Clinician Unavailable Tien Macdonald DO Attending Clinician [phone] Allergies, Adverse Reactions, Alerts Allergy Name Allergy Type Status Severity Reaction(s) Onset Date Inactive Date Treating Clinician Comments Source NO KNOWN ALLERGIE S Drug Class Active [facility] Social History Social Habit Start Date Stop Date Quantity Comments Source Exposure to SARS-CoV-2 (event) Not sure [facility] Sex Assigned At 1995 00:00:00 1995 00[birth year]00 [facility] Smoking Status Start Date Stop Date Source Unknown if ever smoked [facility] Medications Ordered Medication Name Filled Medication Name Start Date Stop Date Current Medication? Ordering Clinician Indication Dosage Frequency Signature (SIG) Comments Components Source sulfamethox azole-trime thoprim 800-160 mg per tablet 07-23 00:00: 00 Yes [id number] 1{tbl} Take 1 tablet by mouth every 12 (twelve) hours. [facility] Vital Signs Vital Name Observation Time Observation Value Comments [place] Systolic blood pressure 2021-07-23 16:00:00 125 mm[Hg] [facility] Diastolic blood pressure 2021-07-23 16:00:00 92 mm[Hg] [facility] Heart rate 2021-07-23 16:00:00 83 /min [facility] Respiratory rate 2021-07-23 16:00:00 18 /min [facility] Oxygen saturation in Arterial blood by Pulse oximetry 2021-07-23 16:00:00 98 /min [place] [facility] Body temperature 2021-07-23 15:37:00 37.22 Becky [facility] Body weight 2021-07-23 15:37:[address] [facility] Procedures Procedure Date / Time Performed Performing Clinicia n Source [place] DRAIN SKIN ABSCESS COMPLIC 2021-07-23 16:34:44 Tien Macdonald [facility] CONSENT/REFUSAL FOR DIAGNOSIS AND TREATMENT 2021-07-23 15:33:57 Doctor Unassigned, [place] [facility] NOTICE OF PRIVACY PRACTICES 2021-07-23 15:33:38 Doctor Unassigned, [place] [facility] Encounters Start Date/Time End Date/Time Encounter Type Admission Type Attending Clinicians Care Facility Care Department Encounter ID Source 2021-07-23 10:39:00 2021-07-23 11:55:00 Emergency X TIEN MACDONALD [facility] ERT [id number] [facility] 2021-07-23 10:39:00 2021-07-23 11:55:00 Emergency Tien Macdonald [facility] [id number] [facility] 2019-12-29 00:00:00 2019-12-29 00:00:00 Outpatient [facility] [id number] [facility]
--- NOTE | 2023-06-28 05:20 | EDPHYS ---
Physician Documentation [facility] Name: Daquan Bydr Age: 28 yrs Sex: Male : 1995 Arrival Date: 06/28/2023 Time: 04:44 Bed 17 Private MD: ED Physician Caio Muse HPI: 06/28 05:21 This 28 yrs old Male presents to ER via Ambulatory with complaints of Sore ec2 Throat, Pain. 05:21 Patient arrives today for evaluation of sore throat. Patient with history of ec2 tonsillitis, states this feels similar. No fevers or chills, has been having pain and symptoms for approximately 5 days. Is having pain with swallowing. Has been using some Aleve to help with the symptoms. States he has previously used Augmentin and steroids that helped with his tonsillitis. Has 3 tablets of Augmentin that he states he took 1 dose earlier.. Historical: - Allergies: 05:08 NKA; tm6 - PMHx: 05:08 Tonsillitis; tm6 - PSHx: 05:08 None; tm6 - Immunization history:: Adult Immunizations up to date, Client reports having NOT received the Covid vaccine. Flu vaccine is not up to date. - Social history:: Smoking status: Patient reports the use of cigarette tobacco products, denies chronic smoking, but will smoke occasionally, Patient uses alcohol, occasionally. ROS: 05:21 Constitutional: as per hpi ec2 Exam: 05:21 Constitutional: GEN: NAD Head: atraumatic Eyes: EOMI Ears: External ears are normal. ec2 Mouth: Posterior pharyngeal erythema noted, peritonsillar cellulitis on the left side noted. No drooling, normal phonation. CV: regular rate LUNGS: no respiratory distress ABD: non-distended SKIN: no evidence of rashes MSK: no evidence of trauma NEURO: moves all extremities equally Vital Signs: 05:06 BP 146 / 94; Pulse 96; Resp 20; Temp 97.5(TE); Pulse Ox 100% on R/A; Weight 145.15 kg; tm6 Height 5 ft. 11 in. ; Pain 7/10; 05:06 Body Mass Index 44.63 (145.15 kg, 180.34 cm) tm6 05:06 Pain Scale: Adult tm6 MDM: 05:11 Patient medically screened. ec2 05:18 Data reviewed: vital signs. ED course: Patient arrives today for evaluation of sore ec2 throat. Examination remarkable for marked erythema, appears like peritonsillar cellulitis, low suspicion for diffuse infection given the patient's overall well appearance, patient is otherwise afebrile. Patient with no issues with drooling. Will start the patient antibiotics, steroids and have him follow-up with primary care doctor.. Administered Medications: 05:36 Drug: Dexamethasone IM 10 mg IM once; GIVE PO Route: IM; Site: Other; tm6 05:36 Drug: Viscous Lidocaine Mucous Membrane Liquid (4 %) 10 ml Mucous Membrane once Route: tm6 Mucous Membrane; Disposition Summary: 06/28/23 05:19 Discharge Ordered Notes: Location: Home ec2 Condition: Stable ec2 Diagnosis - Acute tonsillitis, unspecified ec2 Followup: ec2 - With: Private Physician - When: - Reason: Recheck today's complaints Discharge Instructions: - Discharge Summary Sheet ec2 - Tonsillitis ec2 Forms: - Medication Reconciliation Form ec2 - Thank You Letter ec2 - Antibiotic Education ec2 - Prescription Opioid Use ec2 - Patient Portal Instructions ec2 - Leadership Thank You Letter ec2 Prescriptions: - Augmentin 875-125 mg Oral Tablet - take 1 tablet ORAL route every 12 hours for 10 days; 20 tablet; Refills: 0, ec2 Product Selection Permitted - Prednisone 20 mg Oral Tablet - take 1 tablet ORAL route once daily for 5 days; 5 tablet; Refills: 0, Product ec2 Selection Permitted Signatures: Caio Muse MD MD ec2 Radha Guzman RN RN tm6
--- NOTE | 2023-06-28 05:20 | ER ---
Nurse's Notes [facility] Name: Daquan Byrd Age: 28 yrs Sex: Male : 1995 Arrival Date: 06/28/2023 Time: 04:44 Bed 17 Private MD: Diagnosis: Acute tonsillitis, unspecified Presentation: 06/28 05:06 Chief complaint: Patient states: 5 days ago tonsils started swelling. It is difficult tm6 to swallow and sleep. Also has headache. Coronavirus screen: Vaccine status: Patient reports being unvaccinated. Ebola Screen: Patient negative for fever greater than or equal to 101.5 degrees Fahrenheit, and additional compatible Ebola Virus Disease symptoms Patient denies exposure to infectious person. Patient denies travel to an Ebola-affected area in the 21 days before illness onset. No symptoms or risks identified at this time. Initial Sepsis Screen: Does the patient meet any 2 criteria? No. Patient's initial sepsis screen is negative. Does the patient have a suspected source of infection? No. Patient's initial sepsis screen is negative. Risk Assessment: Do you want to hurt yourself or someone else? Patient reports no desire to harm self or others. Onset of symptoms was June 23, 2023. 05:06 Method Of Arrival: Ambulatory tm6 05:06 Acuity: BAILEY 4 tm6 Triage Assessment: 05:08 General: Appears in no apparent distress. uncomfortable, Behavior is calm, cooperative. tm6 Pain: Complains of pain in face Pain currently is 7 out of 10 on a pain scale. Quality of pain is described as aching. EENT: Throat has enlarged tonsils Reports swelling of tonsils. Neuro: Level of Consciousness is awake, alert, obeys commands, Oriented to person, place, time, situation, Reports headache. Cardiovascular: Capillary refill < 3 seconds Patient's skin is warm and dry. Respiratory: Airway is patent Respiratory effort is even, unlabored, Respiratory pattern is regular, symmetrical. GI: Abdomen is obese. : No signs and/or symptoms were reported regarding the genitourinary system. Derm: No signs and/or symptoms reported regarding the dermatologic system. Musculoskeletal: No signs and/or symptoms reported regarding the musculoskeletal system. Historical: - Allergies: 05:08 NKA; tm6 - PMHx: 05:08 Tonsillitis; tm6 - PSHx: 05:08 None; tm6 - Immunization history:: Adult Immunizations up to date, Client reports having NOT received the Covid vaccine. Flu vaccine is not up to date. - Social history:: Smoking status: Patient reports the use of cigarette tobacco products, denies chronic smoking, but will smoke occasionally, Patient uses alcohol, occasionally. Screenin:11 [facility] ED Fall Risk Assessment (Adult) History of falling in the last 3 months, tm6 including since admission No falls in past 3 months (0 pts). [facility] ED Fall Risk Assessment (Adult) Score/Fall Risk Level 0 - 2 = Low Risk. Abuse screen: Denies threats or abuse. Denies injuries from another. Nutritional screening: No deficits noted. Tuberculosis screening: No symptoms or risk factors identified. Assessment: 05:10 Reassessment: see triage assessment. Respiratory: Airway is patent Breath sounds are tm6 clear. Vital Signs: 05:06 BP 146 / 94; Pulse 96; Resp 20; Temp 97.5(TE); Pulse Ox 100% on R/A; Weight 145.15 kg; tm6 Height 5 ft. 11 in. ; Pain 7/10; 05:06 Body Mass Index 44.63 (145.15 kg, 180.34 cm) tm6 05:06 Pain Scale: Adult tm6 ED Course: 04:50 Patient arrived in ED. gm2 04:59 Radha Guzman, KATE is Primary Nurse. tm6 05:04 Caio Muse MD is Attending Physician. ec2 05:08 Triage completed. tm6 05:08 Arm band placed on right wrist. tm6 05:11 Patient has correct armband on for positive identification. Bed in low position. Call tm6 light in reach. Side rails up X 1. Provided Education on: plan of care. Client placed on continuous cardiac and pulse oximetry monitoring. NIBP monitoring applied. Door closed. Noise minimized. Lights dimmed. 05:40 No provider procedures requiring assistance completed. Patient did not have IV access tm6 during this emergency room visit. Administered Medications: 05:36 Drug: Dexamethasone IM 10 mg IM once; GIVE PO Route: IM; Site: Other; tm6 05:36 Drug: Viscous Lidocaine Mucous Membrane Liquid (4 %) 10 ml Mucous Membrane once Route: tm6 Mucous Membrane; Medication: 05:11 VIS not applicable for this client. tm6 Outcome: 05:19 Discharge ordered by . ec2 05:40 Discharged to home ambulatory, with family, tm6 05:40 Condition: stable 05:40 Discharge instructions given to patient, family, Instructed on discharge instructions, follow up and referral plans. medication usage, Demonstrated understanding of instructions, follow-up care, medications, Prescriptions given X 2, 05:41 Patient left the ED. tm6 Signatures: Caio Muse MD MD 2 Kerry Camilo 2 Radha Guzman RN RN tm6 Corrections: (The following items were deleted from the chart) 05:10 05:06 BP 146 / 94; Pulse 96bpm; Resp 22bpm; Pulse Ox 100% RA; Temp 97.5F Temporal; tm6 145.15 kg; Height 5 ft. 11 in.; BMI: 44.6; Pain 7/10, Adult; tm6
[2023-06-28 06:02] VITALS: BP 146/94; TEMP 97.5; O2SAT 100
== END ==
LOC: ER 04:44
DX: J03.90 Acute tonsillitis, unspecified (principal)
CPT/HCPCS: 96372; 99284; J1100

== ENCOUNTER 2023-12-16 05:32 | Emergency (ER) | payer SELFPAY ==
--- OUTSIDE RECORDS SUMMARY | 2023-12-16 07:44 | XMS REPORT | Continuity of Care Document ---
Author Name Unknown Address [address] [facility] [address] [place] [address] [facility] Address [address] [facility] [address] [place] [address] Care Team Providers Care Seat Scooper Machine Name Role Phone Pcp, Patient Does Not Have A Primary Care Physic otto JANINA POND Attending Clinician Unavailable Janina Pond NP Attending Clinician [phone] TIEN MACDONALD Attending Clinician Unavailable Tien Macdonald DO Attending Clinician [phone] Allergies, Adverse Reactions, Alerts Allergy Name Allergy Type Status Severity Reaction(s) Onset Date Inactive Date Treating Clinician Comments Source NO KNOWN ALLERGIE S Drug Class Active [facility] Social History Social Habit Start Date Stop Date Quantity Comments Source Exposure to SARS-CoV-2 (event) Not sure [facility] Sexual orientation [facility] Sex Assigned At 1995 00:00:00 1995 00:00:00 [facility] Smoking Status Start Date Stop Date Source Tobacco smoking consumption unknown [facility] Medications Ordered Medication Name Filled Medication Name Start Date Stop Date Current Medication? Ordering Clinician Indication Dosage Frequency Signature (SIG) Comments Components Source ibuprofen (IBU) tablet 800 mg 07-22 19:30: 00 07-22 19:27 :00 No 800mg 800 mg, Oral, ONCE, 1 dose, On Fri07/23/23 at 1430, CHANI [facility] ibuprofen 800 mg tablet 07-22 00:00: 00 Yes [id number] 800mg Take 1 tablet by mouth every 6 (six) hours as needed for Pain (scale 1-3) or Pain (scale 4-6). [facility] metFORMIN 500 mg tablet 07-22 00:00: 00 Yes [id number] 500mg Take 1 tablet by mouth in the morning and 1 tablet in the evening. [facility] sulfamethox azole-trime thoprim 800-160 mg per tablet 07-22 00:00: 00 08-02 04:59 :00 No [id number] 1{tbl} Take 1 tablet by mouth every 12 (twelve) hours for 10 days. [facility] cephALEXin 500 mg tablet 07-22 00:00: 00 08-02 04:59 :00 No [id number] 500mg Take 1 tablet by mouth 4 (four) times daily for 10 days. [facility] sulfamethox azole-trime thoprim 800-160 mg per tablet 07-23 00:00: 00 Yes [id number] 1{tbl} Take 1 tablet by mouth every 12 (twelve) hours. [facility] Vital Signs Vital Name Observation Time Observation Value Comments S ource Systolic blood pressure 2023-07-23 20:33:22 152 mm[Hg] [facility] Diastolic blood pressure 2023-07-23 20:33:22 87 mm[Hg] [facility] Heart rate 2023-07-23 18:59:00 100 /min [facility] Body temperature 2023-07-23 18:59:00 36.72 Bceky [facility] Respiratory rate 2023-07-23 18:59:00 16 /min [facility] Body height 2023-07-23 18:59:00 180.3 cm [facility] Body weight 2023-07-23 18:59:00 145.151 kg [facility] BMI 2023-07-23 18:59:00 44.63 kg/m2 [facility] Oxygen saturation in Arterial blood by Pulse oximetry 2023-07-23 18:59:00 98 /min [facility] Systolic blood pressure 2021-07-23 16:00:00 125 mm[Hg] [facility] Diastolic blood pressure 2021-07-23 16:00:00 92 mm[Hg] [facility] Heart rate 2021-07-23 16:00:00 83 /min [facility] Respiratory rate 2021-07-23 16:00:00 18 /min [facility] Oxygen saturation in Arterial blood by Pulse oximetry 2021-07-23 16:00:00 98 /min [facility] Body temperature 2021-07-23 15:37:00 37.22 Becky [facility] Body weight 2021-07-23 15:37:00 140.615 kg [facility] Procedures Procedure Date / Time Performed Performing Clinicia n Source POCT GLUCOSE(AGE 0-30DAYS) 2023-07-23 19:52:00 Janina Pond [facility] POCT GLUCOSE (AUTOMATED) 2023-07-23 19:51:00 Neto Ibanez [facility] CONSENT/REFUSAL FOR DIAGNOSIS AND TREATMENT 2023-07-23 18:53:42 Doctor Unassigned, [place] [facility] DE DRAIN SKIN ABSCESS COMPLIC 2021-07-23 16:34:44 Tien Macdonald [facility] CONSENT/REFUSAL FOR DIAGNOSIS AND TREATMENT 2021-07-23 15:33:57 Doctor Unassigned, [place] [facility] NOTICE OF PRIVACY PRACTICES 2021-07-23 15:33:38 Doctor Unassigned, [place] [facility] Encounters Start Date/Time End Date/Time Encounter Type Admission Type Attending Clinicians Care Facility Care Department Encounter ID Source 2023-07-23 14:02:00 2023-07-23 15:38:00 Emergency X JANINA POND [facility] ERT [id number] [facility] 2023-07-23 14:02:00 2023-07-23 15:38:00 Emergency Janina Pond [facility] [id number] [facility] 2021-07-23 10:39:00 2021-07-23 11:55:00 Emergency X TIEN MACDONALD [facility] ERT [id number] [facility] 2021-07-23 10:39:00 2021-07-23 11:55:00 Emergency Tien Macdonald [facility] [id number] [facility] 2019-12-29 00:00:00 2019-12-29 00:00:[address] [facility] [id number] [facility] Results Test Description Test Time Test Comments Results Result Co mments Source [facility] 0-30DAYS[facility]2023-07-23 19:52:00 * Test Item Value Reference Range Interpretation Comme nts POCT Glu (age 0-30days) (jerica t code = 3343) 365 mg/dl 40-110 A Lab Interpretation (test cod e = [id number]) Abnormal [facility] Notes Date/Time Note Provider Source 2023-07-23 15:36:46 Pt given printed and verbal discharge instructions regarding infected cyst of skin, new onset type 2 DM, encouraged hydration. Prescriptions provided. Discussed ibuprofen and to take with food to avoid GI distress. Discussed antibiotic therapy and to take until all completed unless adverse reaction occurs - if occurs, discontinue medication and follow up with pcp/seek medical attention. Pt verbalized understanding of instructions, pt awake alert oriented, resp reg unlabored, skin w/d, color appropriate for race, moves all ext well,pt encouraged to follow up with pcp. Advised to seek medical attention for new/prolonged/worsening of symptoms. No adverse reaction to meds given in ER noted upon discharge. Awake, alert oriented, resp reg unlabored, skin w/d, pt leaving amb with steady gait, in no apparent distress. Magdalena De La O RN [facility] - Health 2023-07-23 13:57:53 Pt presents with abscess to posterior lower neck x 3 days. Pt had two other abscesses he popped next to the one he is concerned about. Pt states its hard around the abscess and that he couldn't get it to pop. Pt is concerned its infected. Pt has a hx of abscesses. Akanksha Harrington RN [facility]
--- NOTE | 2023-12-16 17:04 | ER ---
Nurse's Notes [facility] Name: Daquan Byrd Age: 28 yrs Sex: Male : 1995 Arrival Date: 12/16/2023 Time: 05:32 Bed 5 Private MD: Diagnosis: Dermatitis, unspecified Presentation: 12/15 05:46 Chief complaint: Patient states: DRY SKIN PLAQUES/RASH ON LOWER LEGS X 2 MONTHS. VERY jj7 ITCHY. Coronavirus screen: At this time, the client does not indicate any symptoms associated with coronavirus-19. Ebola Screen: No symptoms or risks identified at this time. Initial Sepsis Screen: Does the patient meet any 2 criteria? No. Patient's initial sepsis screen is negative. Does the patient have a suspected source of infection? No. Patient's initial sepsis screen is negative. Risk Assessment: Do you want to hurt yourself or someone else? Patient reports no desire to harm self or others. 05:46 Method Of Arrival: Ambulatory [facility] 05:46 Acuity: BAILEY 5 jj7 05:46 Onset of symptoms was October 11, 2023. rg5 Triage Assessment: 05:48 General: Appears in no apparent distress. comfortable, Behavior is calm, cooperative, jj7 appropriate for age. Pain: Denies pain. Derm: Skin PLAQUES TO BILAT LOWER LEGS. Historical: - Allergies: 05:48 NKA; jj7 - PMHx: 05:48 Tonsillitis; Diabetes mellitus; jj7 - PSHx: 05:48 None; jj7 - Immunization history:: Adult Immunizations not up to date, Client reports having NOT received the Covid vaccine. Flu vaccine is up to date. - Infectious Disease History:: Denies. - Social history:: Smoking status: Patient reports the use of cigarette tobacco products, 1 CIG A WEEK, Patient uses alcohol, weekly. Patient/guardian denies using street drugs, IV drugs. Screenin:51 [facility] ED Fall Risk Assessment (Adult) History of falling in the last 3 months, jj7 including since admission No falls in past 3 months (0 pts) Confusion or Disorientation No (0 pts) Intoxicated or Sedated No (0 pts) Impaired Gait No (0 pts) Mobility Assist Device Used No (0 pt) Altered Elimination No (0 pt) Score/Fall Risk Level 0 - 2 = Low Risk Oriented to surroundings, Maintained a safe environment, Educated pt \T\ family on fall prevention, incl call for assistance when getting out of bed. Abuse screen: Denies threats or abuse. Nutritional screening: No deficits noted. Tuberculosis screening: No symptoms or risk factors identified. Assessment: 05:50 General: Appears in no apparent distress. Behavior is calm, cooperative, appropriate rg5 for age. 05:50 Pain: Denies pain. Neuro: Level of Consciousness is awake, alert, obeys commands, rg5 Oriented to person, place, time. Cardiovascular: Denies chest pain, shortness of breath, Capillary refill < 3 seconds Patient's skin is warm and dry. Respiratory: Airway is patent Trachea midline Respiratory effort is even, unlabored, Respiratory pattern is regular, symmetrical. GI: Abdomen is round obese, Abd is soft and non tender. : No signs and/or symptoms were reported regarding the genitourinary system. EENT: No deficits noted. Derm: Reports itching, right lower keg. Musculoskeletal: Range of motion: intact in all extremities. Vital Signs: 05:46 BP 157 / 105; Pulse 88; Resp 16; Temp 98.3; Pulse Ox 99% ; Weight 154.22 kg; Height 5 jj7 ft. 11 in. ; Pain 0/10; 05:46 Body Mass Index 47.42 (154.22 kg, 180.34 cm) jj7 05:46 Pain Scale: Adult jj7 Darlin Coma Score: 05:50 Eye Response: spontaneous(4). Motor Response: obeys commands(6). Verbal Response: rg5 oriented(5). Total: 15. ED Course: 05:32 Patient arrived in ED. mr 05:34 Yon Chacon MD is Attending Physician. rt 05:46 Ra Romero RN is Primary Nurse. rg5 05:48 Triage completed. jj7 05:48 Arm band placed on right wrist. jj7 05:51 Patient has correct armband on for positive identification. Bed in low position. Call jj7 light in reach. Provided Education on: USE OF CALL ROMAN. 05:51 No provider procedures requiring assistance completed. Patient did not have IV access jj7 during this emergency room visit. 05:56 Rolando Amado DO is Referral Physician. rt Administered Medications: No medications were administered Medication: 05:51 VIS not applicable for this client. jj7 Outcome: 05:56 Discharge ordered by . rt 05:59 Discharged to home ambulatory, [place] 05:59 Condition: stable 05:59 Discharge instructions given to patient, Instructed on discharge instructions, Demonstrated understanding of instructions, follow-up care, medications, Prescriptions given X 1, 06:05 Patient left the ED. rg5 Signatures: Luma [place], Reg Reg mr Emily Caban RN RN jj7 Yon Chacon MD MD rt Ra Romero, KATE RN rg5
--- NOTE | 2023-12-16 17:04 | EDPHYS ---
Physician Documentation [facility] Name: Daquan Byrd Age: 28 yrs Sex: Male : 1995 Arrival Date: 12/16/2023 Time: 05:32 Bed 5 Private MD: ED Physician Yon Chacon HPI: 12/15 06:08 This 28 yrs old Male presents to ER via Ambulatory with complaints of Skin rt Sore(s). 06:08 Patient presents to the ED with an itchy rash for 2 months. There is on the bilateral rt shins. Denies warmth, erythema. States that gets worse at nighttime. Tried emollient creams to no relief. Denies other acute complaints at this time, symptoms are mild in severity, no other aggravating or alleviating factors.. Historical: - Allergies: 05:48 NKA; jj7 - PMHx: 05:48 Tonsillitis; Diabetes mellitus; jj7 - PSHx: 05:48 None; jj7 - Immunization history:: Adult Immunizations not up to date, Client reports having NOT received the Covid vaccine. Flu vaccine is up to date. - Infectious Disease History:: Denies. - Social history:: Smoking status: Patient reports the use of cigarette tobacco products, 1 CIG A WEEK, Patient uses alcohol, weekly. Patient/guardian denies using street drugs, IV drugs. ROS: 06:08 Constitutional: Negative for fever, chills, and weight loss, Cardiovascular: Negative rt for chest pain, palpitations, and edema, Respiratory: Negative for shortness of breath, cough, wheezing, and pleuritic chest pain, Abdomen/GI: Negative for abdominal pain, nausea, vomiting, diarrhea, and constipation, Neuro: Negative for headache, weakness, numbness, tingling, and seizure, 06:08 Skin: Positive for rash, Negative for laceration(s), Exam: 06:08 Constitutional: This is a well developed, well nourished patient who is awake, alert, rt and in no acute distress. Head/Face: Normocephalic, atraumatic. Chest/axilla: Normal chest wall appearance and motion. Nontender with no deformity. No lesions are appreciated. Cardiovascular: Regular rate and rhythm with a normal S1 and S2. No gallops, murmurs, or rubs. Normal PMI, no JVD. No pulse deficits. Respiratory: Lungs have equal breath sounds bilaterally, clear to auscultation and percussion. No rales, rhonchi or wheezes noted. No increased work of breathing, no retractions or nasal flaring. Abdomen/GI: Soft, non-tender, with normal bowel sounds. No distension or tympany. No guarding or rebound. No evidence of tenderness throughout. MS/ Extremity: Pulses equal, no cyanosis. Neurovascular intact. Full, normal range of motion. Neuro: Awake and alert, GCS 15, oriented to person, place, time, and situation. Cranial nerves II-XII grossly intact. Motor strength 5/5 in all extremities. Sensory grossly intact. Cerebellar exam normal. Normal gait. 06:08 Skin: Small scaly rash on an erythematous base on the bilateral shins, roughly 3 cm in diameter. No warmth, purulence, skin appears to be dry. Vital Signs: 05:46 BP 157 / 105; Pulse 88; Resp 16; Temp 98.3; Pulse Ox 99% ; Weight 154.22 kg; Height 5 jj7 ft. 11 in. ; Pain 0/10; 05:46 Body Mass Index 47.42 (154.22 kg, 180.34 cm) [facility] 05:46 Pain Scale: Adult jj7 Makanda Coma Score: 05:50 Eye Response: spontaneous(4). Motor Response: obeys commands(6). Verbal Response: rg5 oriented(5). Total: 15. MDM: 05:48 Patient medically screened. rt 06:08 Differential Diagnosis Dermatitis, eczema. Data reviewed: vital signs, nurses notes. rt Test considered but Not performed: Labs: Stable vital signs, rash does not have appearance of cellulitis or other infectious process. Do not suspect EM, TENS, SJS, labs not decayed. Care significantly affected by the following chronic conditions: Diabetes. Counseling: I had a detailed discussion with the patient and/or guardian regarding the historical points, exam findings, and any diagnostic results supporting the discharge/admit diagnosis, the need for outpatient follow up, to return to the emergency department if symptoms worsen or persist or if there are any questions or concerns that arise at home. Administered Medications: No medications were administered Disposition Summary: 12/16/23 05:56 Discharge Ordered Notes: Location: Home rt Problem: an ongoing problem rt Symptoms: are unchanged rt Condition: Stable rt Diagnosis - Dermatitis, unspecified rt Followup: rt - With: Rolando Amado DO - When: 2 - 3 days - Reason: Discharge Instructions: - Discharge Summary Sheet rt - Rash, Adult rt Forms: - Medication Reconciliation Form rt - Antibiotic Education rt - Prescription Opioid Use rt - Patient Portal Instructions rt - Leadership Thank You Letter rt Prescriptions: - Triamcinolone Acetonide 0.1 % Topical ointment - apply 1 application TOPICAL route every 12 hours As needed Please dispense QS rt for 7 days; 1 Each; Refills: 0, Product Selection Permitted Signatures: Emily Caban RN RN jj7 Yon Chacon MD MD rt
[2023-12-17 00:48] VITALS: BP 157/105; TEMP 98.3; O2SAT 99
== END 2023-12-16 06:05 | disposition home or self-care (01) ==
LOC: ER 05:32
DX: L30.9 Dermatitis, unspecified (principal)
CPT/HCPCS: 99283